=== PATIENT | male | born 1960 | race African-American/Black ===

== ENCOUNTER 2021-04-14 04:17 | Emergency (ER) | payer MEDICAID ==
[~2021-04-14] VITALS: Ht 190.5 cm; Wt 71.1 kg
[2021-04-14 04:23] VITALS: BP 158/96
[2021-04-14] MEDS ORDERED: IBUPROFEN 600MG TABLET PO ONE (06:30)
[2021-04-14] MEDS ORDERED: ACETAMINOPHEN 325MG TABLET PO ONE (06:30)
[2021-04-14] MEDS ORDERED: IBUP-2029 MT (06:31)
== END 2021-04-14 06:42 | disposition home or self-care (01) ==
LOC: ER 04:17
DX: M70.21 Olecranon bursitis, right elbow (principal); Y93.89 Activity, other specified
CPT/HCPCS: 73080; 99283